=== PATIENT | male | born 1995 | race Caucasian/White ===

== ENCOUNTER 2024-08-11 05:53 | Emergency (ER) | payer OTHER, SELFPAY ==
--- NOTE | ~2024-08-11 | XR_ITS ---
EXAMINATION: XR chest 1V portable 08/11/2024 06:53 INDICATION: Cough PROCEDURE: AP portable chest COMPARISON: No prior studies for comparison. FINDINGS: The lungs are clear. The cardiomediastinal silhouette is within normal limits. There are no pleural effusions. There is no pneumothorax suspected. IMPRESSION: 1: NO ACUTE CARDIOPULMONARY DISEASE. Reviewed, dictated and finalized at location A.
--- NOTE | 2024-08-11 06:03 | ECG_ITS ---
Test Date: 2024-08-11 06:15:56 Measurements Intervals Chapman Rate: 71 P: 32 NH: 137 QRS: 47 QRSD: 102 T: 14 QT: 370 QTc: 402 Interpretive Statements SINUS RHYTHM No previous ECG available for comparison Electronically Signed On 08-12-2024 18:56:14 CDT by Miki Mejia
--- NOTE | 2024-08-11 06:12 | ED.NAVMDI ---
HPI - Nausea/Vomiting/Diarrhea General Chief complaint: Dizziness Stated complaint: dizziness, nausea, feverish, vomiting Time Seen by Provider: 08/11/24 06:06 History of Present Illness HPI Narrative: 29-year-old male presenting to the emergency depart with nausea, vomiting, diarrhea, dizzy spells. He states he has been having a fever at home as well. Loose stools but this is chronic for him. States that he is nauseous and vomited several times over last few days. Endorses feeling dehydrated despite keeping adequate fluid intake now he is feeling nauseous and not able to keep any fluid down. Denies any chest pain, shortness a breath. Endorses a cough that is nonproductive. 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 No chest pain or difficulty breathing, no headache or vision changes. No abdominal pain or back pain. Remote history of Campylobacter food poisoning requiring hospitalization. Related Data Allergies Allergy/AdvReac Type Severity Reaction Status Date / Time azithromycin (From Zithromax) Allergy Severe Anaphylaxis Verified 08/11/24 06:19 nickel Allergy Severe Rash Verified 08/11/24 06:19 vancomycin Allergy Severe Anaphylaxis Verified 08/11/24 06:19 Review of Systems Review of Systems: As reviewed above in HPI Exam Narrative: GENERAL: [Well-appearing, well-nourished, and in no acute distress.] HEAD: [Normocephalic, atraumatic.] EYES: [PERRLA and EOMI.] ENT: Nares clear, no rhinorrhea or epistaxis. Mucous membranes dry. NECK: Supple. CHEST: [Clear to auscultation. No respiratory distress.] HEART: [Regular rate and rhythm]. No murmur heard. [Normal peripheral pulses.] ABDOMEN: [Soft, nondistended], [nontender], [No rigidity or guarding] EXTREMITIES: Normal range of motion. [No edema.] SKIN: Warm, dry, no rash. NEURO: [No focal deficits]. Alert and oriented [x3.] PSYCH: [Normal mood and affect.] MDM - Nausea/Vomiting/Diarrhea MDM Narrative Medical decision making narrative: 29-year-old male with no significant past medical history presenting to the emergency room with nausea, vomiting, diarrhea, fever. 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 States he has been feverish but tested negative for COVID. Endorses a cough that is nonproductive. No chest pain, shortness a breath, headache, vision changes, abdominal pain, back pain. Endorses loose watery stools but this is chronic for him. Has not tried any antiemetics. Not able to tolerate oral intake according to the patient but he otherwise appears well and has normal vital signs here. Patient was provided fluid bolus, Reglan and diphenhydramine for nausea, CBC, CMP, magnesium, EKG and COVID swabs obtained. Differential diagnosis includes viral gastroenteritis, bacterial gastroenteritis, gastritis, diabetes, metabolic disturbances, viral syndrome. Workup shows largely unremarkable electrolytes, normal creatinine and BUN. Normal glucose. Normal LFTs. Normal magnesium. No leukocytosis or anemia. Minor thrombocytopenia but no previous baseline to compare to. Chest x-ray on my interpretation shows no acute pneumonia or consolidation. Viral panel pending. Patient re-evaluated improved after fluids and Reglan. Will discharge him home with Reglan and benzonatate with return precautions and PCP follow-up. Lab Data 08/11/24 06:17 08/11/24 06:18 Labs: Lab Results 08/11/24 08/11/24 08/11/24 Range/Units 06:16 06:17 06:18 WBC 4.4 L (4.5-10.0) K/mm3 RBC 4.91 (4.6-6.20) M/mm3 Hgb 14.0 (14.0-18.0) g/dL Hct 41.4 L (42.0-52.0) % MCV 84.3 (80-100) fl MCH 28.5 (26-34) pg MCHC 33.8 (32-36) g/dl RDW 14.7 H (11.5-14.5) % Plt Count 97 L (150-375) k/mm3 MPV 10.8 H (7.4-10.4) fl Immature Gran % (Auto) 0.5 (0-0.5) % Neut % (Auto) 70.5 (45.5-73.1) % Lymph % (Auto) 16.9 L (18.3-44.2) % [place] % (Auto) 10.5 H (2.6-8.5) % Eos % (Auto) 1.4 (0-4.4) % Baso % (Auto) 0.2 (0.2-1.2) % Lymph # (Auto) 0.74 L (0.9-3.2) K/mm3 [place] # (Auto) 0.5 (0.1-0.6) K/mm3 Eos # (Auto) 0.1 (0-0.3) K/mm3 Baso # (Auto) 0.0 (0.0-0.1) K/mm3 Abs Immat Gran (auto) 0.02 (0.00-0.031) K/mm3 Absolute Neuts (auto) 3.1 (1.3-6.7) K/mm3 Absolute Nucleated RBC 0.000 (0.0-0.012) K/mm3 Nucleated RBC % 0.0 (0.0-0.2) % % Immature Plt Fraction 6.8 (0.9-11.2) % Sodium 134 L (137-145) mmol/L Potassium 4.1 (3.4-5.0) mmol/L Chloride 97 L (98-107) mmol/L Carbon Dioxide 28 (22-30) mmol/L Anion Gap 9 (4-12) mmol/L BUN 8 L (9-20) mg/dL Creatinine 0.98 (0.7-1.3) mg/dL Estim Creat Clear Calc 122 ml/min Estimated GFR > 60 (59 - ) Glucose 129 H (65-110) mg/dL Calcium 8.8 (8.4-10.2) mg/dL Magnesium 1.7 (1.6-2.3) mg/dL Total Bilirubin 0.6 (0.2-1.3) mg/dL AST 27 (17-59) U/L ALT 24 (6-50) U/L Alkaline Phosphatase 70 (38-126) U/L Total Protein 9.0 H (6.3-8.2) g/dL Albumin 4.4 (3.5-5.1) g/dL Influenza A (RT-PCR) Pending Influenza B (RT-PCR) Pending RSV (RT-PCR) Pending SARS-CoV-2 RNA (RT-PCR) Pending ECG Data EKG #1: Attestation: I personally reviewed and interpreted this ECG as follows: ECG completion date: 08/11/24 ECG completion time: 06:15 Prior ECG tracings: not available for review Interpretation: QTC 402, QRS 102, NC interval 137, rate of 71 beats per minute. Sinus rhythm with no ST segment elevations, no ectopy. Sinus rhythm Discharge Plan Discharge Clinical Impression: Nausea & vomiting, Acute viral syndrome Patient Disposition: Home Condition: Stable Instructions: Antibiotic Form, Acute Nausea and Vomiting (DC), Viral Syndrome (ED) Additional Instructions: Your laboratory studies all look reassuring aside from a single value which is your platelet level which is slightly low, but not significant enough to cause any concern at this time and likely unrelated to your symptoms, but please follow-up with your primary care provider. Return with any worsening concerns such as intractable nausea, vomiting, passing out, abdominal pain, chest pain, difficulty breathing or any other concerns. Patient Language: Djiboutian Prescriptions: New benzonatate 200 mg capsule 200 mg PO TID PRN (Reason: cough) Qty: 20 0RF metoclopramide HCl [Reglan] 5 mg tablet 5 mg PO Q8H PRN (Reason: nausea and vomiting) Qty: 10 0RF Follow-up/Referrals: PHYSICIAN NOT ON STAFF,NONSTAFF [Primary Care Provider] - Time of Disposition: 07:08
[2024-08-11] MEDS: LACTATED RINGERS 1,000 ML 999 ML IV CONT (06:22)
[2024-08-11] MEDS: METOCLOPRAMIDE HCL INJ 10 MG/2 ML VIAL IV PUSH (06:22)
[2024-08-11] MEDS: diphenhydrAMINE HCl INJ 50 MG/ML VIAL 25 MG IV PUSH (06:23)
[2024-08-11 06:33] LABS: Basophils Percent Auto 0.2 % (0.2-1.2); Eosinophils Absolute Auto 0.1 K/mm3 (0-0.3); Eosinophils Percent Auto 1.4 % (0-4.4); Hematocrit 41.4 % (42.0-52.0); Immature Granulocyte Absolute 0.02 K/mm3 (0.00-0.031); Immature Granulocyte Percent A 0.5 % (0-0.5); Immature Platelet Fraction Pct 6.8 % (0.9-11.2); Lymphocytes Absolute Auto 0.74 K/mm3 (0.9-3.2); Lymphocytes Percent Auto 16.9 % (18.3-44.2); Mean Corpuscular HGB Conc 33.8 g/dl (32-36); Mean Corpuscular Hemoglobin 28.5 pg (26-34); Mean Corpuscular Volume 84.3 fl (80-100); Mean Platelet Volume 10.8 fl (7.4-10.4); Monocytes Absolute Auto 0.5 K/mm3 (0.1-0.6); Monocytes Percent Auto 10.5 % (2.6-8.5); Neutrophils Absolute Auto 3.1 K/mm3 (1.3-6.7); Neutrophils Percent Auto 70.5 % (45.5-73.1); Platelet Count Result 97 k/mm3 (150-375); Red Blood Count 4.91 M/mm3 (4.6-6.20); Red Cell Distribution Width 14.7 % (11.5-14.5); White Blood Count 4.4 K/mm3 (4.5-10.0)
[2024-08-11 06:41] LABS: Alanine Aminotransferase 24 U/L (6-50); Albumin Level 4.4 g/dL (3.5-5.1); Alkaline Phosphatase 70 U/L (38-126); Anion Gap 9 mmol/L (4-12); Aspartate Amino Transferase 27 U/L (17-59); Bilirubin,Total 0.6 mg/dL (0.2-1.3); Blood Urea Nitrogen 8 mg/dL (9-20); Calcium 8.8 mg/dL (8.4-10.2); Carbon Dioxide 28 mmol/L (22-30); Chloride 97 mmol/L (98-107); Estimated CRCL calculation 122 ml/min; Estimated Glomerular Filt Rate > 60; Glucose 129 mg/dL (65-110); Magnesium 1.7 mg/dL (1.6-2.3); Potassium 4.1 mmol/L (3.4-5.0); Sodium 134 mmol/L (137-145)
[2024-08-11 07:07] LABS: Influenza A QL RT-PCR Negative (Negative); Influenza B QL RT-PCR Negative (Negative); RSV RNA, RT-PCR Negative (Negative); SARS-CoV-2 RNA PCR Negative (Negative)
--- OUTSIDE RECORDS SUMMARY | 2024-08-11 07:26 | XMS_ITS | Continuity of Care Document ---
Author Organization [facility] Address [address] [place] [address] Phone Care Team Providers Care Blown Film Extrusion Operator Name Role Phone Unavailable Unavailable Unavailable Procedures Procedure Date Office/outpatient visit,est, mod 2010 Office/outpatient visit,est, mod 2010 Office/outpatient visit,est, mod 2010 Postop followup visit Postop followup visit Postop followup visit Knee arthroscopy/repair ligament 2009 Knee arthroscopy/repair ligament 2009 Office/outpatient visit,est, mod 2009 Disability Form Office/outpatient visit,new, [facility] 2009 Advance Directives Directive Yes / No Effective Date File Name No Information Encounters Encounter Description Practice Location Reason(s) For Visit Diagnoses Date Provider Providers Copied on Encounter Office/outpat ient visit,est, [facility] [facility], [address], [id number], tel:[phone] [facility] JOINT PAIN-L/LEGSP RAIN CRUCIATE LIG KNEE 1 No Information Referring Provider: Chin Amanda, [address] [place] [address] [place], [address] . tel:[phone] Office/outpat ient visit,est, [employer] [facility], [address] [facility] [address], [place], [place], [id number], [place] tel:[phone] [facility] SPRAIN CRUCIATE LIG KNEEJOINT PAIN-L/LEG Mar-0 2 1 No Information Referring Provider: Chin Amanda, [address], [address] . tel:[phone] Office/outpat ient visit,est, mod [facility], [address] [address], [place], [place], [id number], [place] tel:[phone] [facility] JOINT PAIN-L/LEGSP RAIN CRUCIATE LIG KNEE Feb-0 1 No Information Referring Provider: Chin Amanda, [address], [address] . tel:[phone] [facility], [address] [address], [place], [place], [id number], [place] tel:[phone] [place] [address] JOINT PAIN-L/LEGSP RAIN CRUCIATE LIG KNEE Nov-2 0 No Information Referring Provider: Chin Amanda, [address], [address] . tel:[phone] [facility], [address] [address], [place], [place], [id number], [place] tel:[phone] [place] [address] No Information 0 No Information Referring Provider: Chin Amanda, [address], [address] . tel:[phone] [facility], [address] [facility] [address], [place], [place], [id number], [place] tel:[phone] [place] [address] No Information 0 0 No Information Referring Provider: Chin Amanda, [address], [address] . tel:[phone] [facility], [address] [facility] [address], [place], [place], [id number], [place] tel:[phone] [place] [address] No Information 0 No Information Referring Provider: Chin Amanda, [address], [address] . tel:[phone] [facility], [address], [id number], tel:[phone] [place] [address] No Information 0 No Information Referring Provider: Chin Amanda, [address], [address] . tel:[phone] Office/outpat ient visit,[facility], [facility], [address] [address], [place], [place], [id number], tel:[phone] [place] [address] No Information 0 No Information Referring Provider: Chin Amanda, [address], [address] . tel:[phone] [facility], [address], [id number], tel:[phone] [facility] No Information 0 No Information Office/outpat ient visit,[facility], [address], [id number], tel:[phone] [place] [address] No Information 0 No Information Referring Provider: Chin Amanda, [address], [address] . tel:[phone] Family History Family Member Type Diagnosis Age At Onset No Information Payers Payer name Insurance type Covered libertarian ID Authoriza tion(s) No Information Social History Type Description Quantity Date Captured Comments Sex Male Smoking Status No Information Chief Complaint And Reason For Visit No Information Reason For Referral Reason For Referral No Information History Of Present Illness Encounter Date Complaint History Of Prese nt Illness No Information Functional Status Date Functional Assessmen t No Information Instructions Date Instruction Additional Infor mation No Information Assessments Type Assessment Date No Information Patient Care Teams Name Effective Dates (start - stop) Status Members No Information
--- OUTSIDE RECORDS SUMMARY | 2024-08-11 07:26 | XMS_ITS | Encounter Summary ---
Author Organization [facility] - [facility] Address [address] [place] [address] Care Team Providers Care Bereavement Coordinator Name Role Phone Reji Dozier DPM Unavailable [phone] Chin [place] MD Primary Care Provider [phone] Encounter Details Date Type Department Care Team (Late st Contact Info) Description 03/13/[address] [facility] Patient Accounts [address] [place] [address] [facility] Provider Action Required Social History Tobacco Use Types Packs/Day Years Used Date Smoking Tobacco: Some Days Cigarettes Smokeless Tobacco: Never Comments:PCP to patient financial counselor Alcohol Use Standard Drinks/Week Comments Yes 0 (1 standard drink = 0.6 oz pur e alcohol) occasional Humiliation, Afraid, Rape, and Kick questionnair e Answer Date Recorded Fear of Current or Ex-Partner No Emotionally Abused No 10/30/2019 Physically Abused No 10/30/2019 Sexually Abused No 10/30/2019 Social Connection and Isolat ion Panel [NHANES] Answer Date Recorded Frequency of Communication w ith Friends and Family More than three times a week 10/30/2019 Frequency of Social Gatherin gs with Friends and Family Once a week 10/30/2019 Attends Anglican Services Never 10/29 Active Member of Clubs or Organizations No 10/30/2019 Attends Club or Organization Meetings Never 10/30/2019 Marital Status Never 10/30/2019 AUDIT-C Answer Date Recorded Frequency of Alcohol Consumption Never 11/18/2018 Average Number of Drinks Not on file 019 Frequency of Binge Drinking Not on file 11/2018 Overall Financial Resource Strain (CARDIA) Answe r Date Recorded Difficulty of Paying Living Expenses Not hard at all 10/30/2019 PHQ-2 Answer Date Recorded PHQ-2 Score - If the patient scores above 3, please move on to questions 3-9 0 11/21/2021 [facility] of Occupat ional [facility] - Occupational Stress Questionnaire Answer Date Recorded Feeling of Stress Not at all 10/30/2019 Exercise Vital Sign Answer Date Recorde d Days of Exercise per Week 5 days 2019 Minutes of Exercise per Session Not on file 10/30/2019 Hunger Vital Sign Answer Date Recorded Worried About Running Out of Food in the Last Ye ar Never true 10/30/2019 Ran Out of Food in the Last Year Never true 10/30/2019 PRAPARE - Transportation Answer Date Re corded Lack of Transportation (Medical) No 10/30/2019 Lack of Transportation (Non-Medical) No 10/30/2019 Sex and Gender Information Value Date Recorded Sex Assigned at Not on file Legal Sex Male 6:48 PM CDT Gender Identity Not on file Sexual Orientation Not on file documented as of this encounter Plan of Treatment Not on file documented as of this encounter Visit Diagnoses Not on filedocumented in this encounter Care Teams Bereavement Coordinator Relationship Specialty Start Date End Date Chin [place] MD [address] [place] [address] PCP - General FAMILY PRACTICE 10/30/19 Reji Dozier DPM [address] [place] [address] Referring Physician PODIATRY/SURGERY 03/06/19 documented as of this encounter
--- OUTSIDE RECORDS SUMMARY | 2024-08-11 07:26 | XMS_ITS | Encounter Summary ---
Author Organization [facility] Address [address] [place] [address] Care Team Providers Care Geographic Information System Analyst Name Role Phone Reji Dozier DPM Unavailable [phone] Chin Welch MD Primary Care Provider [phone] Encounter Details Date Type Department Care Team (Late st Contact Info) Description 04/15/2022 [employer] [facility] Patient Accounts [address] [place] [address] [facility] Provider Monthly Credit Card Payment Social History Tobacco Use Types Packs/Day Years Used Date Smoking Tobacco: Some Days Cigarettes Smokeless Tobacco: Never Comments:PCP to legal counsel Alcohol Use Standard Drinks/Week Comments Yes 0 [...] and Family Once a week 10/30/2019 Attends Shinto Services Never 10/29 Active Member of Clubs [...] move on to questions 3-9 0 11/21/2021 [facility] of Occupat ional [facility] - Occupational Stress Questionnaire Answer Date Recorded [...] on filedocumented in this encounter Care Teams Geographic Information System Analyst Relationship Specialty Start Date End Date Chin [place] MD [address] [place] [address] PCP - General FAMILY PRACTICE 10/30/19 Reji Dozier DPM [address] [place] [address] Referring Physician PODIATRY/SURGERY 03/06/19 documented as of this encounter
--- OUTSIDE RECORDS SUMMARY | 2024-08-11 07:26 | XMS_ITS | Clinical Summary ---
Author Organization [facility] Address [address] [place] [address] Care Team Providers Care C.O.D. Biller Name Role Phone Reji Dozier DPM Unavailable [phone] Chin [place] MD Primary Care Provider [phone] Allergies Active Allergy Reactions Criticality Noted Date Comments Nickel Unknown 09/22/2019 [place] Azithromycin Hives 11/16/2018 Medications naproxen (NAPROSYN) 500 MG tablet Take 1 tablet (500 mg total) by mouth 2 (two) times daily with meals. 20 tablet 04/27/2023 Active Active Problems No known active problems Family History Medical History Relation Comments No Known Problems Brother Diabetes Father Gout Father No Known Problems Mother Relation Status Comments Brother Alive Father Alive Mother Alive Social History Tobacco Use Types Packs/Day Years Used Date Smoking Tobacco: Some Days Cigarettes Smokeless Tobacco: Never Tobacco Cessation:Ready to Q uit: Yes; Counseling Given: No Comments:PCP to genetic counsellor Alcohol Use Standard Drinks/Week Comments Yes 0 [...] and Family Once a week 10/30/2019 Attends Synagogue Services Never 10/29 Active Member of Clubs [...] move on to questions 3-9 0 11/21/2021 [facility] of Occupat ional Health - Occupational Stress Questionnaire Answer Date Recorded [...] on file Sexual Orientation Not on file Last Filed Vital Signs Vital Sign Reading Time Taken Comments Blood Pressure 136/88 04/27/2023 4:59 PM VACUUM EXTRACTOR OPERATOR Pulse 89 04/27/2023 4:59 PM VACUUM EXTRACTOR OPERATOR Temperature 36.6 C (97.9 F) 04/27/2023 4:59 PM VACUUM EXTRACTOR OPERATOR Respiratory Rate 22 04/27/2023 4:59 PM VACUUM EXTRACTOR OPERATOR Oxygen Saturation 99% 04/27/2023 4:59 PM VACUUM EXTRACTOR OPERATOR Inhaled Oxygen Concentration - - Weight 92.5 kg (203 lb 14.8 oz) 04/27/2023 4:59 PM VACUUM EXTRACTOR OPERATOR Height 180.3 cm (5' 11 ) 04/27/2023 4:59 PM VACUUM EXTRACTOR OPERATOR Body Mass Index 28.44 04/27/2023 4:59 PM VACUUM EXTRACTOR OPERATOR Plan of Treatment Health Maintenance Due Date Last Done Comments Annual Physical 1997 Hepatitis C 2012 Pneumococcal Vaccine: Pediatrics (0 to 5 Years) and At-Risk Patients (6 to 49 Years) (1 of 2 - PCV) 2013 COVID-19 Vaccine (1 - season) 2023 DTaP, Tdap and Td Vaccines (5 - Td or Tdap) 12/18/2032 12/18/2022, 09/08/2008, 06/25/1999, Additional history exists Hepatitis B Vaccines Completed 07/01/1998, 03/03/1995, 1994, Additional history exists Meningococcal Vaccine Completed 05/05/2013, 009 HPV Vaccines Completed 06/20/2016, 07/12, 05/05/2013 Meningococcal B Vaccine Aged Out No l onger eligible based on patient's age to complete this topic RSV Immunizations Under 20 Months Aged Out No longer eligible based on patient's age to complete this topic Insurance [facility] Care Teams C.O.D. Biller Relationship Specialty Start Date End Date Chin [place] MD [address] [place] [address] PCP - General FAMILY PRACTICE 10/30/19 Reji Dozier DPM [address] [place] [address] Referring Physician PODIATRY/SURGERY 03/06/19
--- OUTSIDE RECORDS SUMMARY | 2024-08-11 07:26 | XMS_ITS | Encounter Summary ---
Author Organization [facility] Address [address] [place] [address] Care Team Providers Care Charging Car Operator Name Role Phone Reji Dozier DPM Unavailable [phone] Chin [place] MD Primary Care Provider Encounter Details Date Type Department Care Team (Late st Contact Info) Description 08/18/2023 [employer] [address] [place] [address] [employer] Provider Action Needed Social History Tobacco Use Types Packs/Day Years Used Date Smoking Tobacco: Some Days Cigarettes Smokeless Tobacco: Never Comments:PCP to anger control counselor Alcohol Use Standard Drinks/Week Comments Yes [...] and Family Once a week 10/30/2019 Attends Oriental Orthodox Services Never 10/29 Active Member of Clubs [...] move on to questions 3-9 0 11/21/2021 [facility] [employer] of Occupat ional Health - Occupational Stress [...] on filedocumented in this encounter Care Teams Charging Car Operator Relationship Specialty Start Date End Date Chin [place] MD [address] [place] [address] PCP - General FAMILY PRACTICE 10/30/19 Reji Dozier DPM [address] [place] [address] Referring Physician PODIATRY/SURGERY 03/06/19 documented as of this encounter
--- OUTSIDE RECORDS SUMMARY | 2024-08-11 07:26 | XMS_ITS | Clinical Summary ---
Author Organization [facility] Address [address] [place] [address] Care Team Providers Care Grey Iron Molder Name Role Phone Chin Welch MD Primary Care Provider [phone] Source Comments [facility],non-owned Affiliates and Associated Physician Practices is amultiple site organization consisting of ambulatory clinics and hospital sitesin [place], [place], [place] and [place]. This disclosure is being madepursuant to the Care Everywhere program and may not contain all information available regarding this patient. Last updated 18.[facility] Allergies Active Allergy Reactions Criticality Noted Date Comments Nickel Other 09/22/2019 [place] Vancomycin Shortness of Breath,Other High 01/10/2023 Chest heaviness with shortness of breath. Azithromycin Other 09/22/2019 Unknown not list in records Medications * Be aware that medications may not be up to date on this document. Alwaysverify current medications with the patient. Aspirin-Acetami nophen-Caffeine (EXCEDRIN EXTRA STRENGTH PO) Excedrin Migraine Active cyclobenzaprine (Flexeril) 10 MG tabletIndicatio ns:Muscle Spasm Take 0.5 (one-half) tablet by mouth 3 times daily as needed for Muscle Spasms 30 tablet 1 3 Active Additional Information Patient not taking.Reported on 03/10/2023 acetaminophen (Tylenol) 500 MG tabletIndicatio ns:Fever,Pain Take 1 (one) tablet by mouth every 6 hours as needed for Fever, Headache or Pain Reasons: Fever, Pain 3 Active senna-docusate (Senna Plus) 8.6-50 MG tabletIndicatio ns:Constipation Take 1 (one) tablet by mouth once Reasons: Constipation 3 Active HYDROcodone-teena taminophen ([place]) 5-325 MG tabletIndicatio ns:Pain Take 1 (one) tablet by mouth every 6 hours as needed for Pain Reasons: Pain 12 tablet 3 Active Additional Information Patient not taking.Reported on 03/10/2023 docusate sodium (Docu Soft) 100 MG capsuleIndicati ons:Constipatio n Take 1 (one) capsule by mouth once daily as needed for Constipation Reasons: Constipation 3 Active ibuprofen (Motrin) 200 MG tabletIndicatio ns:Pain Take 1 (one) tablet by mouth every 8 hours as needed for Pain Reasons: Pain 3 Active Active Problems Problem Noted Date Diagnosed Date Abscess of anal and rectal regions 01/07/2023 Cellulitis of gluteal region 01/07/2023 Rectal pain 01/07/2023 Vomiting of fecal matter with nausea 01/07/2023 Psoriasis 09/29/2019 Gout Immunizations Immunization Administration Dates Next Due DTP, HISTORIC VACCINE 12/29/1995, 995,1994,08/29 DTaP VACCINE IM (6wk-6yrs) 06/25/1999,,1994,10/28,1994 HEP A VACCINE, ADULT 06/20/2016,05/05/2013 HEP B VACCINE ADOL/ADULT 2 DOSE 07/01/1998,03/02,1994 HEP B VACCINE, PED/ADOL 07/01/1998,03/03,03/02/1995,08/01,1994 HIB VACCINE 10/12/1995, 5,1994,08/29 Human Papilloma Virus Nineva lent Vaccine 06/20/2016,07/22/2013,05/05/2013 Human Papilloma Virus Andressa valent Vaccine 07/22/2013,05/05/2013 INFLUENZA VACCINE 12/18/2022,06/16/2016 MENINGOCOCAL MENINGITIS 05/05/2013,09/08/2008 MENINGOCOCCAL ACWY (MCV4P) VAC IM 05/05/2013, MMR 06/25/1999,07/25/1995 POLIO IPV 06/25/1999, 5,1994,08/29 POLIO OPV 06/25/1999, 6,1994,10/28 TDAP (7yrs+) 12/18/2022,09/08/2008 Family History Medical History Relation Name Comments Gout Father Nephrolithiasis Father Relation Name Status Comments Brother Alive Father Alive Mother Alive Social History Tobacco Use Types Packs/Day Years Used Date Smoking Tobacco: Former Cigarettes Smokeless Tobacco: Never Tobacco Cessation:Counseling Given: No Alcohol Use Standard Drinks/Week Comments Not Currently 0 (1 standard drink = 0.6 oz pur e alcohol) OASIS D0700: Social Isolation Answer Da te Recorded Frequency of experiencing loneliness or isolatio n Never 03/11/2023 OASIS A1250: Transportation Answer Date Recorded Lack of Transportation (Medical) No 03/11/2023 Lack of Transportation (Non-Medical) No 03/11/2023 Patient Unable or Declines to Respond No 03/11/2023 OASIS B1300: Health Literacy Answer Mike e Recorded Frequency of needing help to read materials from doctor or pharmacy Never 03/11/2023 Overall Financial Resource Strain (CARDIA) Answe r Date Recorded How hard is it for you to pa y for the very basics like food, housing, medical care, and heating? Not hard at all 01/08/2023 PHQ-2 Answer Date Recorded Patient Health Questionnaire-2 Score 0 01/14/2023 [facility] [place] [facility] - Occupational Stress Questionnaire Answer Date Recorded Do you feel stress - tense, restless, nervous, or anxious, or unable to sleep at night because your mind is troubled all the time - these days? Not at all 01/08/2023 Hunger Vital Sign Answer Date Recorded Within the past 12 months, y ou worried that your food would run out before you got the money to buy more. Never true 01/09/20 23 Within the past 12 months, t he food you bought just didn't last and you didn't have money to get more. Never true 01/08/2023 PRAPARE - Transportation Answer Date Re corded In the past 12 months, has l ack of transportation kept you from medical appointments or from getting medications? No 12/13 In the past 12 months, has l ack of transportation kept you from meetings, work, or from getting things needed for daily living? No 01/08/2023 Housing Stability Vital Sign Answer Mike e Recorded In the last 12 months, was t here a time when you were not able to pay the mortgage or rent on time? No 01/08/2023 In the last 12 months, how many places have you lived? 1 01/08/2023 In the last 12 months, was t here a time when you did not have a steady place to sleep or slept in a halfway (including now)? 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 INSPECTOR Pulse 100 03/11/2023 1:43 PM CONSTRUCTION AND MAINTENANCE INSPECTOR Temperature 36.4 C (97.6 F) 03/11/2023 1:43 PM CONSTRUCTION AND MAINTENANCE INSPECTOR Respiratory Rate 16 03/11/2023 1:43 PM CONSTRUCTION AND MAINTENANCE INSPECTOR Oxygen Saturation 99% 03/11/2023 1:43 PM CONSTRUCTION AND MAINTENANCE INSPECTOR Inhaled Oxygen Concentration - - Weight 96.6 kg (213 lb) 03/10/2023 1:20 PM CONSTRUCTION AND MAINTENANCE INSPECTOR Height 180.3 cm (5' 11 ) 03/10/2023 1:20 PM CONSTRUCTION AND MAINTENANCE INSPECTOR Body Mass Index 29.71 03/10/2023 1:20 PM CONSTRUCTION AND MAINTENANCE INSPECTOR Plan of Treatment Health Maintenance Due Date Last Done Comments COVID-19 VACCINE ( season) 2023 02/05/2021, 07/28/2020, 07/09/2020 DEPRESSION SCREENING 04/13/2024 01/14/2023 INFLUENZA VACCINE (Season Ended) 2024 12/18/2022, 06/16/2016 DTAP/TDAP/TD VACCINES (8 - Td or Tdap) 12/18/2032 12/18/2022, 09/08/2008, 06/25/1999, Additional history exists ZOSTER VACCINE (1 of 2) 2044 HIB VACCINE Completed 10/12/1995, 12/12, 1994, Additional history exists HEPATITIS B VACCINE Completed 07/01/1998, 07/01/1998, 03/03/1995, Additional history exists MENINGOCOCCAL GROUPS A/C/Y/W VACCINE Completed 05/05/2013, 05/05/2013, 09/08/2008, Additional history exists HPV VACCINE Completed 06/20/2016, 07/12, 07/22/2013, Additional history exists HEPATITIS C SCREENING Discontinued HIV SCREENING Discontinued MENINGOCOCCAL (Group B) VACCINE SHARED DECISION-MAKING Aged Out No longer eligible based on patient's age to complete this topic PNEUMOCOCCAL VACCINE Aged Out No long er eligible based on patient's age to complete this topic Insurance [facility] Address: [facility] [id number] [place] [address] Advance Directives * Full Code (Latest Code Status on File) Date Activated Date Inactivated Comments 01/14/2023 9:38 PM To update the patient's code status, place a code status order. Do not modify or discontinue any currently active code status orders. * Full Code Date Activated Date Inactivated Comments 01/07/2023 11:21 PM 01/12/2023 3:35 PM Care Teams Grey Iron Molder Relationship Specialty Start Date End Date Chin Welch MD [address] [address] PCP - General Family Medicine 09/28/19
--- OUTSIDE RECORDS SUMMARY | 2024-08-11 07:26 | XMS_ITS | Encounter Summary ---
Author Organization [facility] Address [address] [place] [address] Care Team Providers Care Anhydrous Ammonia Production Supervisor Name Role Phone Reji Dozier DPM Unavailable [phone] Chin Welch MD Primary Care Provider [phone] Encounter Details Date Type Department Care Team (Late st Contact Info) Description 01/19/[address] [employer] [facility] Patient Accounts [address] [place] [address] [facility] Provider Action Needed Social History Tobacco Use Types Packs/Day Years Used Date Smoking Tobacco: Some Days Cigarettes Smokeless Tobacco: Never 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 [place] [address] PCP - General FAMILY PRACTICE 10/30/19 Reji Dozier DPM [address] [place] [address] Referring Physician PODIATRY/SURGERY 03/06/19 documented as of this encounter
[2024-08-11 07:45] VITALS: BP 133/79; PULSE 64; RESP 16; O2SAT 98
== END 2024-08-11 07:45 | disposition home or self-care (01) ==
PROVIDERS: Emergency Provider Student in an Organized Health Care Education/Training Program
DX: B34.9 Viral infection, unspecified (principal); R11.2 Nausea with vomiting, unspecified; Z20.822 Contact with and (suspected) exposure to COVID-19
CPT/HCPCS: 36415; 71045; 80053; 83735; 85025; 85055; 87637; 93005; 96361; 96374; 96375; 99284; J1200; J2765; J7120